=== PATIENT | female | born 1980 | race African-American/Black ===

== ENCOUNTER 2018-03-31 13:54 | Emergency (ER) | payer OTHER ==
[~2018-03-31] VITALS: Ht 152.4 cm; Wt 72.6 kg
[~2018-03-31 13:54] MED LIST: CYCLOBENZAPRINE10 M1 PO; MOBIC15 M1 PO
--- NOTE | 2018-03-31 14:14 | ED HEADACHE COMPLAINT ---
History of Present Illness General Chief Complaint: Headache Stated Complaint: ORTEGA Source: patient, family, old records Exam Limitations: no limitations Vital Signs & Intake/Output Vital Signs & Intake/Output Vital Signs Date Time Temp Pulse Resp B/P B/P Pulse O2 O2 Flow FiO2 Mean Ox Delivery Rate 03/31 1632 98.2 58 18 109/69 98 Room Air 03/31 1402 97.1 85 18 134/91 98 Room Air Allergies Coded Allergies: NO KNOWN ALLERGIES (01/25/13) Reconcile Medications Cyclobenzaprine HCl 10 MG TABLET 1 TAB PO TID PRN MUSCLE RELAXANT MAY CAUSE DROWSINESS Meloxicam (Mobic) 15 MG TABLET 1 TAB PO DAILY PRN PAIN/INFLAMMATION Triage Note: 38 YO FEMALE TO TRIAGE FOR EVAL OF ?MIGRANE X1 WEEK. STATES TODAY STARTED WITH DIZZINESS AND NAUSEA, STATES +VISUAL DISTURBANCES. DENIES HX OF MIGRANES. STATES HAS BEEN TAKING ALEVE AND TYLENOL WITHOUT RELIEF. Triage Nurses Notes Reviewed? yes : No Patient currently breastfeeds: No HPI: Patient percent with a headache that she's had for the past week. Patient is being unlike across her head and then radiates down her neck. The pain is tight and throbbing in nature. Positive photophobia. Positive nausea but no vomiting. No fevers or chills. Patient states occasionally feels like her eyes get blurry. Rates the pain at 8 out of 10. Past History Travel History Traveled to [place] past 21 day No Medical History Any Pertinent Medical History? none Neurological: NONE EENT: NONE Cardiovascular: NONE Respiratory: NONE Gastrointestinal: NONE Hepatic: NONE Renal: NONE Musculoskeletal: NONE Psychiatric: NONE Endocrine: NONE Blood Disorders: NONE Cancer(s): NONE PUDDLER PILE DRIVING/Reproductive: NONE Surgical History Surgical History: Psychosocial History What is your primary language Jordanian Tobacco Use: Never used ETOH Use: occasional use Illicit Drug Use: denies illicit drug use Family History Hx Contributory? No Review of Systems Review of Systems Constitutional: Reports: no symptoms. Eyes: Reports: see HPI, blurred vision. Ears, Nose, Throat, Mouth: Reports: no symptoms. Respiratory: Reports: no symptoms. Cardiovascular: Reports: no symptoms. Gastrointestinal/Abdominal: Reports: see HPI, nausea, vomiting. Genitourinary: Reports: no symptoms. Musculoskeletal: Reports: no symptoms. Skin: Reports: no symptoms. Neurological/Psychological: Reports: no symptoms. Hematologic/Endocrine: Reports: no symptoms. Endocrine: Reports: no symptoms. Immunologic/Allergic: Reports: no symptoms. All Other Systems: Reviewed and Negative Physical Exam Physical Exam General Appearance: well developed/nourished, alert, awake, anxious, moderate distress Head: atraumatic, normal appearance Eyes: Bilateral: PERRL, EOMI (SHARP DISK MARGINS). Ears, Nose, Throat: normal pharynx, normal ENT inspection, hearing grossly normal Neck: normal inspection, supple, full range of motion Respiratory: normal breath sounds, chest non-tender, no respiratory distress, lungs clear Cardiovascular: regular rate/rhythm, normal peripheral pulses Gastrointestinal: normal bowel sounds, soft, non-tender, no organomegaly Back: normal inspection, normal range of motion Extremities: normal inspection, normal capillary refill, normal range of motion, no edema Psychiatric: awake, alert, oriented x 3 Cranial Nerves: normal hearing, normal speech, PERRL Coordination/Gait: normal gait Motor/Sensory: no motor/sensory deficits Skin: intact, normal color, warm/dry Lymphatic: no anterior cervical mykel Comments: NO PAPILEDEMA Core Measures Sepsis Present: No Sepsis Focused Exam Completed? No Progress Differential Diagnosis: migraine ORTEGA, tension ORTEGA, IDIOPATHIC INTRACRANIAL HYPERTENSION Plan of Care: Orders Procedure Date/time Status CEREBROSPINAL FLUID CULTURE 03/31 1731 Active CYTOLOGY SPECIMEN 03/31 1731 Active CSF TOTAL PROTEIN 03/31 1731 Active CEREBROSPINAL FL CELL CT 03/31 173 Complete CSF LDH 03/31 173 Active CSF GLUCOSE 03/31 1731 Active Current Medications Sig/Annabelle Start time Last Medication Dose Stop Time Status Admin Acetaminophen/ 1 TAB ONCE ONE 03/31 1815 UNVr 03/31 Butalbital/Caffeine 03/31 1816 1819 (Fioricet) Laboratory Tests 03/31/18 1731: CSF Glucose 49, CSF LDH Pending, CSF Total Protein 53 03/31/18 1731: CSF WBC 2, CSF RBC 0, CSF Comment Microbiology 03/31 1731 CENT N S: CSF Culture - RECD 03/31 173 CENT N S: Gram Stain - RECD Diagnostic Imaging: Viewed by Me: CT Scan. Discussed w/RAD: CT Scan. Radiology Impression: PATIENT: ROSS ANDERSEN PRESENT AGE: 38 PATIENT ACCOUNT NO: [id number] : 79 LOCATION: [facility] ORDERING PHYSICIAN: Trino Chamorro MD SERVICE DATE: 03/31/18 EXAM TYPE: CAT - CT HEAD WO IV CONTRAST EXAMINATION: CT HEAD WITHOUT CONTRAST CLINICAL INFORMATION: Headache. Evaluate for acute intracranial hemorrhage. COMPARISON: CT head 11/02/2012. TECHNIQUE: Contiguous axial imaging was performed from the skull base to vertex without intravenous administration of contrast. DLP: 596.79 mGy-cm FINDINGS: There is no acute intracranial hemorrhage or abnormal extra- axial collection. No intracranial mass effect or midline shift. Lateral and third ventricles are normal. No hydrocephalus. Gold-white matter differentiation is grossly preserved and there is no evidence of acute territorial infarct. The calvarium and skull base are intact. Mastoid air cells and middle ear cavities are well aerated. Visualized paranasal sinuses are well aerated. IMPRESSION: Unremarkable CT scan of the head. No evidence of acute territorial infarct or hemorrhage. DICTATED BY: Arjun Yadav MD DATE/TIME DICTATED:03/31/181636 BOARD HAMMER OPERATOR:JOSH DATE/TIME TRANSCRIBED:03/31/181636 CONFIDENTIAL, DO NOT COPY WITHOUT APPROPRIATE AUTHORIZATION. <Electronically signed in Other Vendor System> SIGNED BY: Arjun Yadav MD 03/31/18 1642 Comments: Discussed with Dr. blakely, the patient is stable for discharge with follow-up with ophthalmology as well as neurology. Departure Departure Disposition: HOME OR SELF CARE Condition: Stable Clinical Impression Primary Impression: Headache Referrals: Jareth WILLIAM,Bernardo Zambrano Patient Has No Primary Care Dr (PCP/Family) Additional Instructions: Follow-up with your eye doctor within the next day or 2 for a detailed funduscopic exam. Take Fioricet as needed for your headache. Follow-up with neurology. Return if symptoms worsen or for any concerns. Departure Forms: Customer Survey General Discharge Information Prescriptions: Current Visit Scripts Butalb/Acetaminophen/Caffeine (Esgic 50-325-40 MG Tablet) 1 TAB PO Q6P PRN HEADACHE #30 TAB Procedures Additional Procedures Additional Procedures: lumbar puncture Progress: LEFT LATERALRECUMMBANT CLEAANEDAND PREPED LIDO 2% 4ML L3L4 CANNULATED O.P 24.6 CLEAR FLUID SENT TO LAB FOR EVAL.
--- NOTE | 2018-03-31 16:42 | CT SCAN REPORT ---
EXAMINATION: CT HEAD WITHOUT CONTRAST CLINICAL INFORMATION: Headache. Evaluate for acute intracranial hemorrhage. COMPARISON: CT head 11/02/2012. TECHNIQUE: Contiguous axial imaging was performed from the skull base to vertex without intravenous administration of contrast. DLP: 596.79 mGy-cm FINDINGS: There is no acute intracranial hemorrhage or abnormal extra-axial collection. No intracranial mass effect or midline shift. Lateral and third ventricles are normal. No hydrocephalus. Gold-white matter differentiation is grossly preserved and there is no evidence of acute territorial infarct. The calvarium and skull base are intact. Mastoid air cells and middle ear cavities are well aerated. Visualized paranasal sinuses are well aerated. IMPRESSION: Unremarkable CT scan of the head. No evidence of acute territorial infarct or hemorrhage.
[2018-03-31] MEDS ORDERED: ESGIC 50-325-41 EACH PO (18:30)
[2018-03-31 18:36] VITALS: BP 110/68
== END 2018-03-31 18:40 ==
LOC: ERH 13:54
DX: R51 Headache (principal); M54.2 Cervicalgia; H53.149 Visual discomfort, unspecified; R11.0 Nausea
CPT/HCPCS: 87070; 87205; 88305; 96374; 96375; 96376; 99291; J0131; J1200; J1885; J2001; J2405; J2930